=== PATIENT | female | born 1995 | race African-American/Black ===

== ENCOUNTER 2017-08-20 08:31 | Emergency (ER) | payer MEDICAID ==
[~2017-08-20] VITALS: Ht 172.7 cm; Wt 87.5 kg
[2017-08-20] MEDS ORDERED: prenatal vits (08:56)
[2017-08-20 09:00] VITALS: BP 116/76
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
[2017-08-20 09:54] LABS: APPEARANCE,URINE CLEAR; BILIRUBIN, URINE NEGATIVE (NEGATIVE); COLOR,URINE BROWN; GLUCOSE, URINE (UA) NEGATIVE (NEGATIVE); KETONES,URINE 1+ (NEGATIVE); LEUKOCYTE ESTERASE ,URINE 2+ (NEGATIVE); NITRITE,URINE NEGATIVE (NEGATIVE); PH,URINE 7 (4.5-8.0); PROTEIN,URINE 1+ (NEGATIVE); UROBILINOGEN,URINE 1 MG/DL (0.0-1.0)
[2017-08-20 10:05] LABS: ANION GAP 7 mmol/L (5-15); BLOOD UREA NITROGEN 7 mg/dL (7-18); CALCIUM 9.1 MG/DL (8.5-10.1); CARBON DIOXIDE 26 MMOL/L (21-32); CHLORIDE 104 MMOL/L (98-107); CREATININE 0.7 MG/DL (0.55-1.30); POTASSIUM 3.6 MMOL/L (3.5-5.1); SODIUM 137 MMOL/L (136-145)
[2017-08-20 10:10] LABS: ALANINE AMINOTRANSFERASE 14 U/L (12-78); ALBUMIN 3.2 G/DL (3.4-5.0); ALBUMIN/GLOBULIN RATIO 0.9 (1.0-2.7); ALKALINE PHOSPHATASE 43 U/L (46-116); ASPARTATE AMINO TRANSFERASE 17 U/L (15-37); BILIRUBIN,TOTAL 0.7 MG/DL (0.2-1.0)
[2017-08-20 10:18] VITALS: BP 119/81
[2017-08-20] MEDS ORDERED: cefTRIAXone 1 GM in NS 55 ML IVPB ONE (10:30)
[2017-08-20 12:05] VITALS: BP 123/78
[2017-08-20] MEDS ORDERED: PHENERGAN25 M1 ORAL (14:33)
[2017-08-20] MEDS ORDERED: NITROFURANTOIN100 M2 ORAL (14:33)
[2017-08-20 15:04] VITALS: BP 117/78
--- NOTE | 2017-08-26 08:35 | Diagnostic Imaging Report ---
Indication: Pain, patient Technique: Transabdominal and transvaginal images Comparison: none Findings: Note that the exam is extremely limited and inadequate. Efforts have been made to contact the patient for rescanning the as of today's date have not been successful. Should patient return for repeat imaging, an addendum report will be issued Limited available images demonstrate uterus to measure 10.5 cm length by 8.2 cm AP. Within the endometrium, there is a live intrauterine that demonstrates positive heart activity with a heart rate 160 bpm. Neither ovary is demonstrated. dimensions are not demonstrated adequately. A single head circumference measurement suggests a gestational age of 12 weeks 4 days Impression: Limited inadequate exam, as described above-repeat imaging desired if possible. Available images demonstrate a live probably late first trimester intrauterine with a normal heart rate No nonvisualization of either ovary
== END 2017-08-20 15:04 | disposition home or self-care (01) ==
LOC: EMR 08:54
DX: O23.11 Infections of bladder in pregnancy, first trimester (principal); Z3A.12 12 weeks gestation of pregnancy; Z91.012 Allergy to eggs; Z91.018 Allergy to other foods
CPT/HCPCS: 36415; 76801; 76830; 80053; 81003; 83690; 84702; 87086; 96360; 96361; 99284; J0696